=== PATIENT | female | born 1975 | race Caucasian/White ===

== ENCOUNTER 2019-07-09 20:27 | Emergency (ER) | payer OTHER ==
[2019-07-09 21:13] VITALS: TEMP 98
--- NOTE | 2019-07-09 22:53 | ED.PDOC ---
History of Present Illness - General Chief Complaint: ENT Problem Stated Complaint: sore throat Time Seen by Provider: 07/09/19 22:34 Source: patient, family Exam Limitations: no limitations - History of Present Illness Initial Comments: 2 D Severity: moderate EENT Location: facial Prearrival Treatment: no prearrival treatment Improving Factors: nothing Worsening Factors: nothing Associated Symptoms: cough, sore throat Allergies/Adverse Reactions: Allergies NO KNOWN ALLERGY Allergy (Verified 07/09/19 21:24) Home Medications: Ambulatory Orders Buspirone HCl 10 mg PO DAILY 07/09/19 Gabapentin [Neurontin] 300 mg PO BID 07/09/19 Glipizide 10 mg PO DAILY 07/09/19 Metformin HCl [Fortamet] 1,000 mg PO BID 07/09/19 Sertraline HCl 100 mg PO DAILY 07/09/19 Trazodone HCl [Trazodone Hydrochloride] 50 mg PO BEDTIME 07/09/19 Review of Systems - Review of Systems Constitutional: Denies: chills, fever EENTM: States: nose congestion, throat pain. Denies: eye pain, ear pain, mouth pain Respiratory: States: cough. Denies: short of breath All other Systems: Reviewed and Negative Past Medical History (General) - Patient Medical History Hx Diabetes: Yes Surgical History: Hysterectomy - Vaccination History Hx Tetanus, Diphtheria Vaccination: Yes Hx Influenza Vaccination: No - Social History Hx Alcohol Use: No Family Medical History - Family History Mother Family History: Unknown Physical Exam - Physical Exam General Appearance: Alert, No apparent distress Eye Exam: bilateral normal Ear Exam: bilateral ear: auricle normal, canal normal, TM normal Nasal Exam: normal inspection Throat Exam: normal mouth inspection, pharynx normal Neck: non-tender, full range of motion, supple, normal inspection, trachea midline Cardiovascular/Respiratory: regular rate, rhythm, no M/R/G, normal breath sounds, no respiratory distress Abdominal Exam: non-tender, no organomegaly Neurologic: no motor/sensory deficits, alert Skin Exam: normal color, warm/dry Progress - Progress Progress: 07/09/19 23:46 RAPID STREP NEG. 2 D SINUS PRESSURE AND VIRAL PHARYNGITIS. ABX NOT IN DICATED. 07/09/19 23:48 Departure - Departure Clinical Impression: Viral URI with cough Disposition: Discharge to Home or Self Care Condition: Good Departure Forms: ED Discharge - Pt. Copy, Patient Portal Self Enrollment Instructions: Viral Upper Respiratory Infection, Adult (DC) Diet: resume usual diet Activity: increase activity as tolerated Home Medications: Ambulatory Orders Buspirone HCl 10 mg PO DAILY 07/09/19 Gabapentin [Neurontin] 300 mg PO BID 07/09/19 Glipizide 10 mg PO DAILY 07/09/19 Metformin HCl [Fortamet] 1,000 mg PO BID 07/09/19 Sertraline HCl 100 mg PO DAILY 07/09/19 Trazodone HCl [Trazodone Hydrochloride] 50 mg PO BEDTIME 07/09/19 Additional Instructions: Take Sudafed for the sinus pressure. Take zinc dissolving tablets and Hooppole lozenges for the sore throat. Take Mucinex-DM for the congestion and cough.
[2019-07-09 23:09] VITALS: BP 125/83; O2SAT 97
== END 2019-07-09 23:35 | disposition home or self-care (01) ==
LOC: ER 20:27
DX: J06.9 Acute upper respiratory infection, unspecified (principal); E11.9 Type 2 diabetes mellitus without complications; Z79.84 Long term (current) use of oral hypoglycemic drugs; Z79.899 Other long term (current) drug therapy